=== PATIENT | female | born 1940 | race Caucasian/White ===

== ENCOUNTER → 2016-10-17 | Outpatient (CLI) | payer BC | LOC: FIMAGING 16:42 | PROVIDERS: ATTEND Internal Medicine | DX: M79.605 Pain in left leg (principal) ==

== ENCOUNTER → 2017-05-08 | Outpatient (CLI) | payer BC | LOC: FIMAGING 12:02 | PROVIDERS: ATTEND Internal Medicine | DX: Z12.31 Encounter for screening mammogram for malignant neoplasm of breast (principal) ==

== ENCOUNTER 2018-01-18 14:06 | Emergency (ER) | payer BC ==
--- NOTE | 2018-01-18 14:38 | EDPHY ---
[facility] Exam Limitations: No limitations - Personal History Current Tetanus/Diphtheria Vaccine: Yes Tetanus Vaccine Date: 2013 - Medical/Surgical History Hx Asthma: No Hx Chronic Respiratory Disease: No Hx Diabetes: No Hx Cardiac Disease: No Hx Renal Disease: No Hx Cirrhosis: No Hx Alcoholism: No Hx HIV/AIDS: No Hx Splenectomy or Spleen Trauma: No Other PMH: HTN, TUBAL LIGATION, BACK SURGERY, melanoma, dyslipidemia, hysterectomy - Social History Smoking Status: Former smoker Time Seen by Provider: 01/18/18 14:36 HPI/ROS: CHIEF COMPLAINT: Mechanical fall, head injury, right hand injury, left knee injury HISTORY OF PRESENT ILLNESS: The patient presents the ED after mechanical fall. She tripped immediately prior to arrival in a parking lot. The patient fell and struck her head. She was not knocked unconscious. She complains of a moderate headache. She denies neck pain. The patient complains of right hand pain and a degloving type laceration over her 5th MCP joint. Patient also has an abrasion over her left knee and patellar tenderness. The patient denies any chest pain, shortness of breath, abdominal pain, numbness, weakness or additional acute complaints. The patient is not anticoagulated. REVIEW OF SYSTEMS: A comprehensive 10 point review of systems is otherwise negative aside from elements mentioned in the history of present illness. (Kiko Carrion) - Physical Exam Exam: General Appearance: Alert, no distress Head: Scalp hematoma noted on the right temporal area Eyes: Pupils equal, round, reactive ENT, Mouth: No hemotympanum, no oral trauma Neck: Nontender, trachea midline Respiratory: No chest wall tender, no subcutaneous air, lungs clear bilaterally Cardiovascular: Regular rate and rhythm Abdomen: Abdomen is soft and nontender, pelvis stable Skin: 5 cm degloving type laceration right hand over the 5th MCP joint, exposed tendon, no obvious tendon laceration, superficial abrasion left knee Back: No midline T/L/S pain Extremities: Tenderness to palpation left patella Neurological: A&Ox3, normal motor function, normal sensory exam (Kiko Carrion) Constitutional: Initial Vital Signs Temperature (C) 36.5 C 01/18/18 14:08 Heart Rate 51 L 01/18/18 14:08 Respiratory Rate 18 01/18/18 14:08 Blood Pressure 155/83 H 01/18/18 14:08 O2 Sat (%) 95 01/18/18 14:08 O2 Delivery Mode Room Air Allergies/Adverse Reactions: No Known Allergies Allergy (Unverified 01/18/18 14:15) Home Medications: Medication Instructions Recorded Aspirin [Aspirin 81mg (*)] 81 mg PO HS 12/07/13 Atorvastatin Calcium [Lipitor 40 40 mg PO DAILY 12/07/13 mg (*)] Citalopram [CeleXA 20 MG] 20 mg PO DAILY 12/07/13 Valsartan/Hydrochlorothiazide 1 each PO DAILY 12/07/13 [Valsartan-Hctz 320-25 mg Tab] Cephalexin [Keflex] 500 mg PO TID #21 cap 01/18/18 Medical Decision Making - Diagnostics Imaging Results: Imaging Impressions Hand X-Ray 01/18/18 14:43 Impression: No evidence for acute fracture. Mild degenerative change as above. Head CT 01/18/18 14:43 Impression: Minimal periventricular and deep hemispheric white matter change that can be seen with small vessel ischemic disease. No evidence for acute intracranial abnormality. Knee X-Ray 01/18/18 14:44 Impression: Degenerative change of the medial and patellofemoral compartment of left knee. Mild suprapatellar joint effusion. Soft tissue injury anterior to the patellar tendon. Procedures: My involvement the care this patient is solely for procedure. Please see the note of the attending physician for all other aspects of care. PROCEDURE: Laceration repair Consent: Verbal Location: Ulnar aspect of right hand Length of repair: 5 cm Complexity: Complex Layer involvement: 2 layer Anesthesia: Local. 0.5% Marcaine without epinephrine. 8 mL Irrigation: Extensive Debridement: No excisional debridement Procedure description: Following good anesthesia, the wound was copiously irrigated. Wound bed was explored with a sterile glove, and there is no foreign body noted. No injury to the underlying interossei or flexor apparatus. Wound borders were approximated well with good hemostasis. Tolerated well without complication. Suture/Staple material: Subcutaneous layer: 5-0 Vicryl, 12 figure-eight sutures. Cutaneous layer: 12 simple ruptured sutures Wound care: Routine as discussed Suture/Staple removal: 10-14 Days (Bruno Catherine) ED Course/Re-evaluation: The patient presents to the ED for evaluation of injury sustained from mechanical fall. The patient did fall and strike her head. She does have a hematoma in complains of a frontal headache. Based upon her age a CT scan of the head was ordered which demonstrates no evidence of an intracranial hemorrhage. The patient did have an x-ray of her right hand which demonstrates no evidence of an acute fracture. She had a complex laceration of the right hand which was repaired by the physician respiratory equipment assistant under my supervision. The patient has knee pain without evidence of an obvious fracture noted on her x -ray. The patient was observed in the emergency department. She is ambulatory. She is neurologically intact. I have cleared her cervical spine via nexus criteria. Patient will be discharged home with a prescription for antibiotics and instructions to return to the ED in 14 days for suture removal. The patient is also given customary closed head injury aftercare instructions. The patient will be referred to our on-call orthopedic surgeon for any persistent knee pain as this may be the sign of an injury not noted on the x- ray today. (Kiko Carrion) Differential Diagnosis: Differential diagnosis considered includes skull fracture, intracranial hemorrhage, concussion, hand fracture, hand laceration, tendon laceration, knee fracture (Kiko Carrion) - Data Points Medications Given: Discontinued Medications Tetracaine/Epinephrine/Lidocaine (Let Gel Topical) 1 ea TP EDNOW ONE Stop: 01/18/18 14:40 Last Admin: 01/18/18 14:44 Dose: 1 ea Departure - Departure Disposition: Home, Routine, Self-Care Clinical Impression: Laceration of right hand, Left knee sprain, Head injury Condition: Good Instructions: Laceration (ED) Additional Instructions: 1. Return to the ED in 14 days for suture removal. 2. Please take antibiotics as directed. 3. Return to the ED for increased pain, redness or swelling. 4. Tylenol and ibuprofen as needed for pain 5. Your x-rays demonstrate no evidence of an obvious fracture. Please follow up with the orthopedic surgeon you have been referred to for any persistent pain , swelling or immobility of the hand or knee as this may be the sign of an injury not noted on the x-ray today. Referrals: Cher George MD [Primary Care Provider] - As per Instructions Irwin Correa MD [Medical Doctor] - As per Instructions Prescriptions: Cephalexin [Keflex] 500 mg PO TID #21 cap
[2018-01-18] MEDS ORDERED: LET GEL TOPICAL 1 EA SYR TP ONE (14:39)
[2018-01-18 16:53] VITALS: BP 140/84
== END 2018-02-01 10:10 | disposition home or self-care (01) ==
PROC: 0HQFXZZ Repair Right Hand Skin, External Approach (ICD-10-PCS; principal; 2018-01-18)
DX: S61.411A Laceration without foreign body of right hand, initial encounter (principal); S83.92XA Sprain of unspecified site of left knee, initial encounter; S00.93XA Contusion of unspecified part of head, initial encounter; W01.10XA Fall on same level from slipping, tripping and stumbling with subsequent striking against unspecified object, initial encounter; Y92.481 Parking lot as the place of occurrence of the external cause